=== PATIENT | female | born 1950 | race Caucasian/White ===

== ENCOUNTER 2019-04-27 10:16 | Day surgery (SDC) | payer MEDICARE ==
[~2019-04-27] VITALS: Ht 154.9 cm; Wt 60.8 kg
[~2019-04-27 10:16] MED LIST: ALBU8.5H8 INH; ALPR0.25 PO; ALPR1TAB6 PO; APIX5TAB PO; ASPI-515 PO; ATOR40TA78 PO; BUPR1PAT7 TD; CALC500T93 PO; CEFD300C37 PO; CHOL2000 PO; CHOL5000 PO; CITA10TA8 PO; CITA40TA12 PO; CITA40TA5 PO; CLOP75TA52 PO; DIPH1TAB6 PO; DOXY100T PO; ESCI20TA10 PO; FENO145T32 PO; FISH1CAP PO; HYDR-3237 PO; HYDR-36 PO; HYDR12.575 PO; HYDR8TAB PO; LAMO200T2 PO; LEVO125T5 PO; LEVO88TA4 PO; LOSA1TAB22 PO; LOSA25TA12 PO; METO25TA35 PO; MULT-717 PO; NICO-486 TD; ONDA4TAB10 PO; ONDA4TAB13 SL; OXYC-307 PO; OXYC10TA47 PO; OXYC15TA PO; ROSU20TA2 PO; ROSU20TA29 PO; TIOT4MIS5 INH; TRAM-47 PO; TRAZ-137 PO; TRAZ150T62 PO; VARE1TAB21 PO; [UNRECOGNIZED DRUG - OTHER]
[2019-04-27] MEDS: SODIUM CHLORIDE 0.9% 1,000 ML IV SCH ×3 (11:04→15:04)
[2019-04-27 11:26] VITALS: BP 138/79
[2019-04-27] MEDS ORDERED: DIPHENHYDRAMINE 50 MG/ML, 1ML IVPush ONE (11:30)
[2019-04-27] MEDS ORDERED: DIPHENHYDRAMINE 50 MG/ML, 1ML ONE (12:21)
[2019-04-27] MEDS ORDERED: LIDOCAINE 2%, 20ML ONE (13:54)
[2019-04-27] MEDS ORDERED: MIDAZOLAM 1 MG/ML, 5ML ONE (13:54)
[2019-04-27] MEDS ORDERED: FENTANYL PF 100 MCG/2ML ONE ×2 (13:54→15:43)
[2019-04-27] MEDS ORDERED: VERAPAMIL 2.5 MG/ML, 2ML ONE (13:58)
[2019-04-27] MEDS ORDERED: HEPARIN 1,000 UNITS/ML, 10ML ONE (14:05)
[2019-04-27] MEDS ORDERED: SODIUM CHLORIDE 0.9% 1,000 ML IV SCH (15:55)
[2019-04-27] MEDS ORDERED: OXYcodone/APAP 10/325MG TABLET PO ONE (18:00)
[2019-04-27 18:48] VITALS: BP 156/74
== END 2019-04-27 22:32 | disposition home or self-care (01) ==
LOC: CACL 10:16 → 5SO 16:26 → CACL 22:32
PROVIDERS: ATTEND Internal Medicine Cardiovascular Disease
DX: I08.0 Rheumatic disorders of both mitral and aortic valves (principal); I25.10 Atherosclerotic heart disease of native coronary artery without angina pectoris; I25.83 Coronary atherosclerosis due to lipid rich plaque; I48.0 Paroxysmal atrial fibrillation; I10 Essential (primary) hypertension; J44.9 Chronic obstructive pulmonary disease, unspecified; E78.2 Mixed hyperlipidemia; F17.210 Nicotine dependence, cigarettes, uncomplicated; Z79.82 Long term (current) use of aspirin; Z79.890 Hormone replacement therapy; Z79.01 Long term (current) use of anticoagulants; Z79.899 Other long term (current) drug therapy; Z95.2 Presence of prosthetic heart valve; Z95.5 Presence of coronary angioplasty implant and graft
CPT/HCPCS: 93458; 99156; 99157; C1769; C1894; J1200; J1644; J2250; J3010; Q9967; G0378

== ENCOUNTER 2019-05-11 11:26 | Outpatient (CLI) | payer MEDICARE ==
[2019-05-11 12:55] LABS: CREATININE 1.08 mg/dL (0.55-1.02)
[2019-05-11] MEDS ORDERED: VISIPAQUE 320 MG/ML, 150ML BOTTLE ONE (16:30)
== END 2019-05-11 23:59 | disposition home or self-care (01) ==
LOC: CVU 11:26 → RAD 23:59
PROVIDERS: ATTEND Internal Medicine Cardiovascular Disease
DX: I65.23 Occlusion and stenosis of bilateral carotid arteries (principal); I70.203 Unspecified atherosclerosis of native arteries of extremities, bilateral legs; I70.0 Atherosclerosis of aorta; I70.1 Atherosclerosis of renal artery; I77.1 Stricture of artery; I72.4 Aneurysm of artery of lower extremity; I35.0 Nonrheumatic aortic (valve) stenosis; I10 Essential (primary) hypertension; J90 Pleural effusion, not elsewhere classified; J81.1 Chronic pulmonary edema; R59.0 Localized enlarged lymph nodes; E78.5 Hyperlipidemia, unspecified; Z95.2 Presence of prosthetic heart valve; Z87.891 Personal history of nicotine dependence
CPT/HCPCS: 36415; 71275; 74174; 82565; 93880; Q9967

== ENCOUNTER 2019-05-13 07:00 | Day surgery (SDC) | payer MEDICARE ==
[~2019-05-13] VITALS: Ht 154.9 cm; Wt 56.4 kg
[2019-05-13 07:23] VITALS: BP 158/87
[2019-05-13] MEDS ORDERED: PROPOFOL 10 MG/ML, 20ML ONE (08:40)
== END 2019-05-13 10:09 | disposition home or self-care (01) ==
LOC: CACL 07:00
PROVIDERS: ATTEND Internal Medicine Cardiovascular Disease
DX: R06.02 Shortness of breath (principal); I08.1 Rheumatic disorders of both mitral and tricuspid valves; I48.0 Paroxysmal atrial fibrillation; I10 Essential (primary) hypertension; J44.9 Chronic obstructive pulmonary disease, unspecified; E78.2 Mixed hyperlipidemia; I73.9 Peripheral vascular disease, unspecified; F17.210 Nicotine dependence, cigarettes, uncomplicated; Z79.01 Long term (current) use of anticoagulants; Z79.890 Hormone replacement therapy; Z79.82 Long term (current) use of aspirin; Z79.899 Other long term (current) drug therapy; Z95.2 Presence of prosthetic heart valve
CPT/HCPCS: 93312; 93325; J2704

== ENCOUNTER 2019-06-17 02:20 | Emergency (ER) | payer MEDICARE ==
[~2019-06-17] VITALS: Ht 154.9 cm; Wt 58.9 kg
[~2019-06-17 02:20] MED LIST changes: +ATEN50TA41 PO; +DIPH1TAB PO; +FENO48TA17 PO; +FURO20TA3 PO; +LEVO75TA5 PO; +POTASSIUM ACETATE PO; +TEMA30CA PO; +TRAZ300T2 PO
--- NOTE | 2019-06-17 02:51 | NUR ---
THIS IS A 68Y F THAT COMES IN FOR TIGHTNESS IN HER CHEST AND JAW, PT ALSO REPORTS RIGHT LEG/ ANKLE SWELLING. PT IS SCHEDULED FOR OPEN HEART VALVE REPLACEMENT THIS AM AT 0400
--- NOTE | 2019-06-17 02:51 | NUR ---
MD AT BEDSIDE TO ASSESS PT
[2019-06-17] MEDS ORDERED: SODIUM CHLORIDE FLUSH 10ML SYR IVF ONE (03:00)
[2019-06-17 03:38] LABS: BASOPHILS # (AUTO) 0.02 x10^3/uL (0-0.1); BASOPHILS % (AUTO) 0 % (0-1); EOSINOPHILS # (AUTO) 0.07 x10^3/uL (0-0.4); EOSINOPHILS % (AUTO) 1 % (1-7); LYMPHOCYTES # (AUTO) 0.89 x10^3/uL (1-3.4); LYMPHOCYTES % (AUTO) 15 % (22-44); MD NO; MEAN CORPUSCULAR HEMOGLOBIN 32.8 pg (27.0-34.8); MEAN CORPUSCULAR HGB CONC 31.9 g/dL (32.4-35.8); MEAN CORPUSCULAR VOLUME 102.9 fL (80-100); MEAN PLATELET VOLUME 7.7 fL (7.4-10.4); MONOCYTES # (AUTO) 0.25 x10^3/uL (0.2-0.8); MONOCYTES % (AUTO) 4 % (2-9); NEUTROPHILS # (AUTO) 4.86 x10^3/uL (1.8-6.8); NEUTROPHILS % (AUTO) 80 % (42-75); PLATELET COUNT 207 x10^3/uL (130-400); RED BLOOD COUNT 2.75 x10^6/uL (3.82-5.3)
[2019-06-17 03:48] LABS: ALBUMIN 3.3 g/dL (3.4-5.0); ANION GAP 6 mmol/L (5-15); CALCIUM 9.1 mg/dL (8.5-10.1); CHLORIDE 105 mmol/L (98-107); CREATININE 1.31 mg/dL (0.55-1.02)
[2019-06-17 03:52] LABS: TROPONIN I < 0.015 ng/mL (0.000-0.045)
--- NOTE | 2019-06-17 03:58 | NUR ---
ALL RESULTS BACK CHART UP FOR RECHECK
[2019-06-17 04:18] VITALS: BP 129/70
[2019-06-17] MEDS ORDERED: HYDR-36 PO (15:37)
== END 2019-06-17 04:20 | disposition home or self-care (01) ==
LOC: ED 03:44
DX: R07.2 Precordial pain (principal); R60.9 Edema, unspecified; I25.2 Old myocardial infarction; I10 Essential (primary) hypertension; E78.5 Hyperlipidemia, unspecified; F17.200 Nicotine dependence, unspecified, uncomplicated; Z72.89 Other problems related to lifestyle
CPT/HCPCS: 36415; 80048; 82040; 83880; 84484; 85025; 93005; 99284

== ENCOUNTER 2019-07-22 19:18 | Inpatient (IN) | payer MEDICARE ==
[~2019-07-22] VITALS: Ht 154.9 cm; Wt 56.9 kg
[~2019-07-22 19:18] MED LIST changes: +OXYC-432 PO
--- NOTE | 2019-07-22 19:47 | NUR ---
ASSUMED CARE OF PATIENT. PATIENT REPORTS SHE HAS HAD LOW BLOOD PRESSURE AT HOME. PT REPORTS SHE STOPPED TAKING HER LOW BLOOD PRESSURE MEDICATIONS FOUR DAYS AGO. VS STABLE. GROUP WORKER ON. AT BEDSIDE. CALL LIGHT IN PLACE. WILL CONTINUE TO MONITOR.
--- NOTE | 2019-07-22 19:48 | NUR ---
DR MARTINEZ IN ROOM
--- NOTE | 2019-07-22 20:05 | NUR ---
XRAY IN ROOM
--- NOTE | 2019-07-22 20:05 | NUR ---
CINDY RN: ASSISTED IN PT CARE. IV ACCESS OBTAINED. ERP AT BEDSIDE AND ORDER FOR 1 LITER BOLUS NS RECEIVED. FLUIDS INFUSING. WARM BLANKET AND PILLOW GIVEN. CALL LIGHT IN REACH.
[2019-07-22] MEDS ORDERED: SODIUM CHLORIDE 0.9% 1,000 ML IV STA (20:18)
[2019-07-22 20:34] LABS: MEAN CORPUSCULAR HEMOGLOBIN 32.9 pg (27.0-34.8); MEAN CORPUSCULAR HGB CONC 32.2 g/dL (32.4-35.8); MEAN CORPUSCULAR VOLUME 102.2 fL (80-100); MEAN PLATELET VOLUME 7.4 fL (7.4-10.4); PLATELET COUNT 270 x10^3/uL (130-400); RED BLOOD COUNT 2.13 x10^6/uL (3.82-5.3); RED CELL DISTRIBUTION WIDTH 15.3 % (9.6-15.2)
[2019-07-22 20:35] LABS: HEMOGRAM NOTE RECHECKED
[2019-07-22 20:39] LABS: ALBUMIN 3.2 g/dL (3.4-5.0); ANION GAP 12 mmol/L (5-15); CHLORIDE 104 mmol/L (98-107)
--- NOTE | 2019-07-22 20:41 | NUR ---
CRITICAL CALLED FROM LAB, HCT 21.8, HGB 7. MD MALLIKA NOTIFIED GUAC RECTAL EXAM DONE BY MD MALLIKA
[2019-07-22 20:43] LABS: ALANINE AMINOTRANSFERASE 17 U/L (12-78); ALKALINE PHOSPHATASE 35 U/L (45-117); BILIRUBIN,TOTAL 0.6 mg/dL (0.2-1.0); CREATININE 1.25 mg/dL (0.55-1.02); TOTAL PROTEIN 6.5 g/dL (6.4-8.2); TROPONIN I < 0.015 ng/mL (0.000-0.045)
[2019-07-22] MEDS ORDERED: LEVO125T5 PO (20:43)
[2019-07-22] MEDS ORDERED: CITA40TA5 PO (20:44)
[2019-07-22] MEDS ORDERED: CLOP75TA PO (20:46)
[2019-07-22 20:47] LABS: MD YES
[2019-07-22] MEDS ORDERED: FENO160T PO (20:47)
[2019-07-22] MEDS ORDERED: LAMO100T PO (20:48)
--- NOTE | 2019-07-22 20:50 | NUR ---
EXPLAINED TO PATIENT NEED FOR BLOOD, GAVE PT INFROMATION ABOUT TRANSFUSIONS. BLOOD CONSENT FORM SIGNED BY PATIENT, RN, AND
[2019-07-22] MEDS ORDERED: LOSA100T14 PO (20:51)
[2019-07-22] MEDS ORDERED: HYDR25TA6 PO (20:52)
[2019-07-22] MEDS ORDERED: PANTOPRAZOLE 80 MG in SODIUM CHLORIDE 0.9% 50 ML IV ONE (21:00)
[2019-07-22] MEDS ORDERED: PANTOPRAZOLE 80 MG in SODIUM CHLORIDE 0.9% 100 ML IV SCH (21:00)
[2019-07-22] MEDS ORDERED: SODIUM CHLORIDE 0.9% 1,000 ML IV ONE (21:00)
[2019-07-22 21:01] LABS: ANISOCYTOSIS 1+; BAND#(MANUAL) 0.09 x10^3/uL; BANDS%(MANUAL) 1 % (0-7); BASOS#(MANUAL) 0.09 x10^3/uL (0-0.1); BASOS% (MANUAL) 1 % (0-1); LYMPH#(MANUAL) 1.44 x10^3/uL (1-3.4); LYMPHS% (MANUAL) 16 % (22-44); MONOS#(MANUAL) 0.27 x10^3/uL (0.3-2.7); MONOS% (MANUAL) 3 % (2-9); SEG#(MANUAL) 7.11 x10^3/uL (1.8-6.8); SEGS% (MANUAL) 79 % (42-75)
[2019-07-22 21:02] LABS: OVALOCYTES 1+; POLYCHROMASIA 1+
[2019-07-22 21:03] LABS: <PLATELET ESTIMATE> ADEQUATE; LARGE PLATELETS 1+; TEAR DROPS 1+
[2019-07-22] MEDS: PANTOPRAZOLE 80 MG in SODIUM CHLORIDE 0.9% 100 ML IV SCH (21:30)
[2019-07-22] MEDS ORDERED: ONDANSETRON 2MG/ML, 2ML IVPush PRN (21:30)
[2019-07-22] MEDS ORDERED: BISACODYL 10 MG SUPP PR PRN (21:30)
[2019-07-22] MEDS ORDERED: ALBUTEROL SULFATE 2.5 MG/3 ML NPPB SCH (21:30)
[2019-07-22 21:59] VITALS: BP 102/59
[2019-07-22 22:03] VITALS: BP 98/58
--- NOTE | 2019-07-22 22:12 | NUR ---
PRBC INFUSION STARTED, PATIENT TOLERATING INFUSION WELL. VSS, NAD, DOUBLE VERIFIED WITH MAMADOU MOORE. IV PROTONIX BOLUS STARTED AT THIS TIME. REPORT CALLED TO MAMADOU ANTHONY. PLAN OF CARE DISCUSSED. MAMADOU ANTHONY AWARE BLOOD INFUSION JUST STARTED AND PATIENT WILL STAY DOWN HERE FOR NEXT 15MIN FOR FIRST VITAL SIGN CHECK, THEN TRANSFER UPSTAIRS.
[2019-07-22 22:17] VITALS: BP 91/52
[2019-07-22 22:36] LABS: INTERNATIONAL NORMALIZED RATIO 1.32 (0.93-1.1)
[2019-07-22 22:49] VITALS: BP 119/72
[2019-07-22] MEDS: NICOTINE 7 MG/24 HR PATCH.TD24 TD SCH (23:14)
[2019-07-22] MEDS: ATORVASTATIN 80 MG TABLET PO SCH (23:14)
[2019-07-23] VITALS (13 sets, daily range): BP systolic 90–152; BP diastolic 53–88
[2019-07-23] MEDS: ALPRazolam 1MG TAB PO PRN ×2 (00:42→22:10)
[2019-07-23] MEDS: OXYcodone/APAP 5/325MG TABLET PO PRN ×2 (01:21→15:09)
[2019-07-23 02:34] LABS: ALBUMIN 2.4 g/dL (3.4-5.0); ANION GAP 8 mmol/L (5-15); CHLORIDE 111 mmol/L (98-107)
[2019-07-23 02:37] LABS: ALANINE AMINOTRANSFERASE 13 U/L (12-78); ALKALINE PHOSPHATASE 25 U/L (45-117); BILIRUBIN,TOTAL 0.7 mg/dL (0.2-1.0); TOTAL PROTEIN 4.8 g/dL (6.4-8.2)
[2019-07-23] MEDS: SODIUM CHLORIDE 0.9% 1,000 ML IV SCH ×2 (02:47→17:30)
[2019-07-23 02:56] LABS: MEAN CORPUSCULAR HEMOGLOBIN 32.7 pg (27.0-34.8); MEAN CORPUSCULAR HGB CONC 32.8 g/dL (32.4-35.8); MEAN CORPUSCULAR VOLUME 99.8 fL (80-100); MEAN PLATELET VOLUME 7.3 fL (7.4-10.4); PLATELET COUNT 180 x10^3/uL (130-400); RED BLOOD COUNT 2.04 x10^6/uL (3.82-5.3); RED CELL DISTRIBUTION WIDTH 17.5 % (9.6-15.2)
[2019-07-23 03:23] LABS: MD YES
[2019-07-23 03:27] LABS: ANISOCYTOSIS 1+; BAND#(MANUAL) 0.12 x10^3/uL; BANDS%(MANUAL) 2 % (0-7); LYMPH#(MANUAL) 1.24 x10^3/uL (1-3.4); LYMPHS% (MANUAL) 20 % (22-44); METAMYELOCYTES# (MANUAL) 0.06 x10^3/uL (0-0); METAMYELOCYTES% (MANUAL) 1 % (0-1); MYELOCYTES# (MANUAL) 0.06 x10^3/uL (0-0); MYELOCYTES% (MANUAL) 1 % (0-0); POLYCHROMASIA 1+; SEG#(MANUAL) 4.71 x10^3/uL (1.8-6.8); SEGS% (MANUAL) 76 % (42-75)
[2019-07-23 03:28] LABS: <PLATELET ESTIMATE> ADEQUATE; LARGE PLATELETS 1+; OVALOCYTES 1+; SCHISTOCYTES 1+; TEAR DROPS 1+
[2019-07-23] MEDS: ALBUTEROL/IPRATROPIUM 2.5MG/0.5MG, 3 ML NPPB SCH ×4 (06:00→21:00)
[2019-07-23] MEDS: FENOFIBRATE 145 MG TABLET PO SCH (08:03)
[2019-07-23] MEDS: LAMOTRIGINE 200 MG TABLET PO SCH (08:03)
[2019-07-23] MEDS: CITALOPRAM 20 MG TABLET PO SCH (08:03)
[2019-07-23] MEDS ORDERED: TIOTROPIUM BROMIDE INH SCH (09:00)
[2019-07-23] MEDS ORDERED: LEVOTHYROXINE 125 MCG TABLET PO SCH (09:00)
[2019-07-23] MEDS ORDERED: OXYcodone/APAP 10/325MG TABLET PO SCH (09:00)
[2019-07-23] MEDS: PANTOPRAZOLE 80 MG in SODIUM CHLORIDE 0.9% 100 ML IV SCH (09:10)
[2019-07-23] MEDS ORDERED: PROPOFOL 10 MG/ML, 20ML ONE (11:02)
[2019-07-23] MEDS ORDERED: PHENYLEPHRINE 10 MG/ML ONE (11:02)
[2019-07-23] MEDS ORDERED: HALOPERIDOL 5 MG/ML IV PRN (13:00)
[2019-07-23] MEDS ORDERED: PROMETHAZINE 25 MG/ML, 1ML IV PRN (13:00)
[2019-07-23] MEDS ORDERED: FENTANYL PF 100 MCG/2ML IV PRN (13:00)
[2019-07-23] MEDS ORDERED: MIDAZOLAM 1 MG/ML, 2ML IV PRN (13:00)
[2019-07-23] MEDS ORDERED: OXYcodone 5 MG/5 ML ORAL.SOL UDC PO PRN (13:00)
[2019-07-23] MEDS ORDERED: ONDANSETRON ODT 8 MG PO PRN (13:00)
[2019-07-23] MEDS ORDERED: hydrALAzine 20 MG/ML, 1ML IV PRN (13:00)
[2019-07-23] MEDS ORDERED: LABETALOL 5MG/ML, 20ML IV PRN (13:00)
[2019-07-23] MEDS ORDERED: EPHEDRINE 50 MG/ML, 1ML IVPush PRN (13:00)
[2019-07-23] MEDS ORDERED: ONDANSETRON 2MG/ML, 2ML IV PRN (13:00)
[2019-07-23] MEDS ORDERED: PROMETHAZINE 12.5 MG SUPP PR PRN (13:00)
[2019-07-23] MEDS ORDERED: MEPERIDINE/PF 25MG/ML,1ML IVPush PRN (13:00)
[2019-07-23] MEDS ORDERED: DIAZEPAM 5 MG/ML, 2ML IVPush PRN (13:00)
[2019-07-23] MEDS ORDERED: ALBUTEROL SULFATE 2.5 MG/3 ML NPPB PRN (13:00)
[2019-07-23] MEDS ORDERED: HYDROmorphone 2 MG/ML, 1ML IVPush PRN (13:00)
[2019-07-23] MEDS ORDERED: OXYcodone 5 MG/5 ML ORAL.SOL UDC ONE (13:14)
[2019-07-23] MEDS: ATORVASTATIN 80 MG TABLET PO SCH (20:33)
[2019-07-23] MEDS: OXYcodone/APAP 10/325MG TABLET PO PRN (20:34)
[2019-07-23] MEDS: NICOTINE 7 MG/24 HR PATCH.TD24 TD SCH (20:40)
[2019-07-23 21:19] LABS: MEAN CORPUSCULAR HEMOGLOBIN 30.5 pg (27.0-34.8); MEAN CORPUSCULAR HGB CONC 32.9 g/dL (32.4-35.8); MEAN CORPUSCULAR VOLUME 92.7 fL (80-100); MEAN PLATELET VOLUME 7.5 fL (7.4-10.4); PLATELET COUNT 190 x10^3/uL (130-400); RED BLOOD COUNT 3.22 x10^6/uL (3.82-5.3); RED CELL DISTRIBUTION WIDTH 22.6 % (9.6-15.2)
[2019-07-23 21:29] LABS: MD YES
[2019-07-23 21:32] LABS: ANISOCYTOSIS 1+; EOS#(MANUAL) 0.29 x10^3/uL (0.0-0.4); EOS% (MANUAL) 4 % (1-7); LYMPH#(MANUAL) 1.68 x10^3/uL (1-3.4); LYMPHS% (MANUAL) 23 % (22-44); MONOS#(MANUAL) 0.22 x10^3/uL (0.3-2.7); MONOS% (MANUAL) 3 % (2-9); POLYCHROMASIA 1+; SEG#(MANUAL) 5.11 x10^3/uL (1.8-6.8); SEGS% (MANUAL) 70 % (42-75); TEAR DROPS 1+
[2019-07-23 21:33] LABS: <PLATELET ESTIMATE> ADEQUATE; LARGE PLATELETS 1+; OVALOCYTES 1+
[2019-07-23] MEDS ORDERED: OMNIPAQUE 350 MG/ML, 100ML BOTTLE ONE (22:23)
[2019-07-24 00:59] VITALS: BP_SYST 118; BP_DIAS 75; BP_DIAS 79
[2019-07-24] MEDS: OXYcodone/APAP 10/325MG TABLET PO PRN ×2 (03:15→09:21)
[2019-07-24 05:15] LABS: MEAN CORPUSCULAR HEMOGLOBIN 30.7 pg (27.0-34.8); MEAN CORPUSCULAR HGB CONC 32.8 g/dL (32.4-35.8); MEAN CORPUSCULAR VOLUME 93.6 fL (80-100); MEAN PLATELET VOLUME 7.6 fL (7.4-10.4); PLATELET COUNT 169 x10^3/uL (130-400); RED BLOOD COUNT 2.94 x10^6/uL (3.82-5.3)
[2019-07-24] MEDS: SODIUM CHLORIDE 0.9% 1,000 ML IV SCH (05:26)
[2019-07-24 05:28] LABS: MD YES
[2019-07-24 05:29] LABS: CHLORIDE 116 mmol/L (98-107)
[2019-07-24 05:30] LABS: ANISOCYTOSIS 1+; EOS#(MANUAL) 0.24 x10^3/uL (0.0-0.4); EOS% (MANUAL) 3 % (1-7); LYMPH#(MANUAL) 1.42 x10^3/uL (1-3.4); LYMPHS% (MANUAL) 18 % (22-44); MONOS#(MANUAL) 0.08 x10^3/uL (0.3-2.7); MONOS% (MANUAL) 1 % (2-9); OVALOCYTES 1+; POLYCHROMASIA 1+; SEG#(MANUAL) 6.16 x10^3/uL (1.8-6.8); SEGS% (MANUAL) 78 % (42-75)
[2019-07-24 05:31] LABS: <PLATELET ESTIMATE> ADEQUATE; LARGE PLATELETS 1+
[2019-07-24 05:34] LABS: ALANINE AMINOTRANSFERASE 15 U/L (12-78); ALBUMIN 2.5 g/dL (3.4-5.0); ALKALINE PHOSPHATASE 37 U/L (45-117); ANION GAP 6 mmol/L (5-15); CALCIUM 7.8 mg/dL (8.5-10.1); CREATININE 0.95 mg/dL (0.55-1.02); TOTAL PROTEIN 5.1 g/dL (6.4-8.2)
[2019-07-24] MEDS ORDERED: LEVOTHYROXINE 125 MCG TABLET PO SCH (06:00)
[2019-07-24] MEDS: ALBUTEROL/IPRATROPIUM 2.5MG/0.5MG, 3 ML NPPB SCH ×2 (06:45→10:30)
[2019-07-24 07:07] VITALS: BP 100/65
[2019-07-24] MEDS ORDERED: OMEPRAZOLE 20 MG CAPSULE.DR PO SCH (09:00)
[2019-07-24] MEDS: FENOFIBRATE 145 MG TABLET PO SCH (09:19)
[2019-07-24] MEDS: CITALOPRAM 20 MG TABLET PO SCH (09:20)
[2019-07-24] MEDS: LAMOTRIGINE 200 MG TABLET PO SCH (09:20)
[2019-07-24] MEDS ORDERED: OMEP-110 PO (10:22)
== END 2019-07-24 12:05 | disposition home health service (06) | DRG 378 ==
LOC: ED 19:49 → EDIP 21:07 → 3N 22:36 → DCLOUNGE 07-24 11:45
PROVIDERS: ADMIT Internal Medicine; ATTEND Internal Medicine
PROC: 0D568ZZ Destruction of Stomach, Via Natural or Artificial Opening Endoscopic (ICD-10-PCS; principal; 2019-07-23 14:00)
DX: K31.811 Angiodysplasia of stomach and duodenum with bleeding (principal); D62 Acute posthemorrhagic anemia; E87.1 Hypo-osmolality and hyponatremia; E87.2 Acidosis; J96.11 Chronic respiratory failure with hypoxia; E03.9 Hypothyroidism, unspecified; E78.5 Hyperlipidemia, unspecified; F17.210 Nicotine dependence, cigarettes, uncomplicated; F32.9 Major depressive disorder, single episode, unspecified; F41.9 Anxiety disorder, unspecified; G47.33 Obstructive sleep apnea (adult) (pediatric); I10 Essential (primary) hypertension; I25.10 Atherosclerotic heart disease of native coronary artery without angina pectoris; I35.0 Nonrheumatic aortic (valve) stenosis; I48.0 Paroxysmal atrial fibrillation; J44.9 Chronic obstructive pulmonary disease, unspecified; G89.29 Other chronic pain; I73.9 Peripheral vascular disease, unspecified; I95.9 Hypotension, unspecified; K92.0 Hematemesis; Z96.651 Presence of right artificial knee joint; Z79.02 Long term (current) use of antithrombotics/antiplatelets; I25.2 Old myocardial infarction; Z82.5 Family history of asthma and other chronic lower respiratory diseases; Z95.1 Presence of aortocoronary bypass graft; Z95.3 Presence of xenogenic heart valve; Z95.5 Presence of coronary angioplasty implant and graft; Z79.899 Other long term (current) drug therapy; Z95.2 Presence of prosthetic heart valve; Z98.51 Tubal ligation status
CPT/HCPCS: 36415; 36430; 71045; 74177; 80053; 82607; 83880; 84484; 85014; 85018; 85025; 85610; 85730; 86850; 86900; 86923; 93005; 94640; 96361; 96365; G0378; J2704; J3010; J7620; Q9967; C9113; J2370; J7030; P9016

== ENCOUNTER → 2019-12-09 | Outpatient (CLI) | payer MEDICARE ==
[~2019-12-09] MED LIST changes: +CLOP75TA PO; +FENO160T PO; +FENO48TA10 PO; -FENO48TA17 PO; +HYDR-3246 PO; -HYDR-36 PO; +HYDR25TA6 PO; +LAMO100T8 PO; -LAMO200T2 PO; +LAMO200T6 PO; +LOSA100T14 PO; +OMEP-110 PO; -OXYC15TA PO; +OXYC15TA3 PO; -TRAZ-137 PO; +TRAZ-175 PO
== END | disposition home or self-care (01) ==
LOC: CVU 11:01
PROVIDERS: ATTEND Internal Medicine Cardiovascular Disease
DX: I08.1 Rheumatic disorders of both mitral and tricuspid valves (principal); I48.0 Paroxysmal atrial fibrillation; I10 Essential (primary) hypertension; Z95.2 Presence of prosthetic heart valve; Z79.01 Long term (current) use of anticoagulants
CPT/HCPCS: 93306

== ENCOUNTER 2020-11-23 13:21 | Observation (INO) | payer MEDICARE ==
[2020-11-21 12:13] LABS: BASOPHILS % (AUTO) 1 % (0-1); EOSINOPHILS % (AUTO) 1 % (1-7); LYMPHOCYTES % (AUTO) 11 % (22-44); MEAN CORPUSCULAR HGB CONC 33.7 g/dL (32.4-35.8); MEAN PLATELET VOLUME 6.9 fL (7.4-10.4); MONOCYTES % (AUTO) 7 % (2-9); NEUTROPHILS % (AUTO) 80 % (42-75); PLATELET COUNT 268 x10^3/uL (130-400); RED CELL DISTRIBUTION WIDTH 17.2 % (9.6-15.2)
[2020-11-21 12:14] LABS: MD NO
[2020-11-21 12:30] LABS: ALBUMIN 3.8 g/dL (3.4-5.0); ANION GAP 5 mmol/L (5-15); CALCIUM 9.9 mg/dL (8.5-10.1); CHLORIDE 102 mmol/L (98-107)
[2020-11-21 12:33] LABS: ALANINE AMINOTRANSFERASE 25 U/L (12-78); ALKALINE PHOSPHATASE 66 U/L (45-117); BILIRUBIN,TOTAL 0.5 mg/dL (0.2-1.0); CREATININE 1.43 mg/dL (0.55-1.02)
[~2020-11-23] VITALS: Ht 156.2 cm; Wt 51.2 kg
[~2020-11-23 13:21] MED LIST changes: +ALPR-585 PO; -ALPR1TAB6 PO; -ASPI-515 PO; +ASPI-963 PO; +CYAN-27 PO; -HYDR-3246 PO; +HYDR-3248 PO; -HYDR8TAB PO; +HYDR8TAB44 PO; +ONDA4TAB7 PO; -OXYC-307 PO; +OXYC-380 PO; -OXYC-432 PO; +OXYC1TAB18 PO; +TIZA4CAP PO; +ZINC50CA PO
[2020-11-23 13:54] VITALS: BP 168/73
[2020-11-23] MEDS ORDERED: LIDOCAINE-MPF 1%, 2ML ONE (14:10)
[2020-11-23] MEDS ORDERED: D5%-0.45% NACL 1,000 ML IV SCH (15:00)
[2020-11-23] MEDS ORDERED: LIDOCAINE-MPF 1%, 2ML INFIL ONE (15:00)
[2020-11-23] MEDS ORDERED: FENTANYL PF 100 MCG/2ML ONE (16:22)
[2020-11-23] MEDS ORDERED: MIDAZOLAM 1 MG/ML, 5ML ONE (16:22)
[2020-11-23] MEDS ORDERED: HEPARIN 1,000 UNITS/ML, 10ML ONE (16:23)
[2020-11-23] MEDS ORDERED: NALOXONE 1 MG/ML, 2ML ONE (16:23)
[2020-11-23] MEDS ORDERED: PROTAMINE SULFATE 10 MG/ML, 25ML ONE (16:23)
[2020-11-23] MEDS ORDERED: FLUMAZENIL 0.1 MG/1 ML, 5ML ONE (16:23)
[2020-11-23] MEDS ORDERED: LIDOCAINE 1%, 10ML ONE ×2 (16:30→17:06)
[2020-11-23] MEDS ORDERED: hydrALAzine 20 MG/ML, 1ML ONE ×2 (16:56→18:19)
[2020-11-23] MEDS ORDERED: HYDROmorphone 1 MG/ML, 1ML INJ IM PRN (18:30)
[2020-11-23] MEDS ORDERED: ACETAMINOPHEN 650 MG/20.3 ML UDC PO PRN (18:30)
[2020-11-23] MEDS ORDERED: ALBUTEROL SULFATE 2.5 MG/3 ML HHN PRN (19:00)
[2020-11-23] MEDS ORDERED: DIPHENOXYLATE/ATROPINE TABLET PO PRN (19:00)
[2020-11-23] MEDS ORDERED: ONDANSETRON 4 MG TABLET PO PRN (19:00)
[2020-11-23] MEDS: D5%-LACTATED RINGERS 1,000 ML IV SCH (19:30)
[2020-11-23 20:23] VITALS: BP 157/81
[2020-11-23] MEDS ORDERED: TRAZODONE 150MG TABLET PO SCH (21:00)
[2020-11-23] MEDS: APIXABAN 5 MG TABLET PO SCH (21:02)
[2020-11-23] MEDS: METOPROLOL TARTRATE 25 MG TAB PO SCH (21:03)
[2020-11-23] MEDS: OXYcodone/APAP 10/325MG TABLET PO PRN (21:03)
[2020-11-23] MEDS ORDERED: OMEPRAZOLE 20 MG CAPSULE.DR PO ONE (21:30)
[2020-11-24] VITALS (7 sets, daily range): BP systolic 80–118; BP diastolic 45–68
[2020-11-24] MEDS: OXYcodone/APAP 10/325MG TABLET PO PRN ×4 (02:10→15:04)
[2020-11-24] MEDS: D5%-LACTATED RINGERS 1,000 ML IV SCH ×3 (03:27→11:00)
[2020-11-24 05:39] LABS: BASOPHILS % (AUTO) 1 % (0-1); EOSINOPHILS % (AUTO) 1 % (1-7); LYMPHOCYTES % (AUTO) 16 % (22-44); MEAN CORPUSCULAR HEMOGLOBIN 32.9 pg (27.0-34.8); MEAN CORPUSCULAR HGB CONC 33.9 g/dL (32.4-35.8); MEAN PLATELET VOLUME 6.8 fL (7.4-10.4); MONOCYTES % (AUTO) 10 % (2-9); NEUTROPHILS % (AUTO) 73 % (42-75); PLATELET COUNT 243 x10^3/uL (130-400); RED BLOOD COUNT 3.72 x10^6/uL (3.82-5.3); RED CELL DISTRIBUTION WIDTH 17.2 % (9.6-15.2)
[2020-11-24 05:40] LABS: MD NO
[2020-11-24 05:50] LABS: ANION GAP 6 mmol/L (5-15); CALCIUM 8.5 mg/dL (8.5-10.1); CHLORIDE 100 mmol/L (98-107); CREATININE 1.34 mg/dL (0.55-1.02)
[2020-11-24] MEDS ORDERED: LEVOTHYROXINE 125 MCG TABLET PO SCH (06:00)
[2020-11-24] MEDS: METOPROLOL TARTRATE 25 MG TAB PO SCH (08:39)
[2020-11-24] MEDS: APIXABAN 5 MG TABLET PO SCH (08:39)
[2020-11-24] MEDS ORDERED: OMEPRAZOLE 20 MG CAPSULE.DR PO SCH (09:00)
[2020-11-24] MEDS ORDERED: LAMOTRIGINE 200 MG TABLET PO SCH (09:00)
[2020-11-24] MEDS ORDERED: POTASSIUM CHLORIDE 20 MEQ in SODIUM CHLORIDE 0.9% 250 ML IV ONE (09:00)
[2020-11-24] MEDS ORDERED: SODIUM CHLORIDE 0.9%, 500ML IVBOLUS ONE (12:00)
== END 2020-11-24 15:25 | disposition home or self-care (01) ==
LOC: SDC 13:21 → 4NE 19:00 → SDC 19:56 → 4NE 19:57 → DCLOUNGE 11-24 15:20
PROVIDERS: ADMIT Surgery; ATTEND Surgery
DX: I65.21 Occlusion and stenosis of right carotid artery (principal); Z20.822 Contact with and (suspected) exposure to COVID-19; I65.22 Occlusion and stenosis of left carotid artery; I70.1 Atherosclerosis of renal artery; N26.1 Atrophy of kidney (terminal); I70.8 Atherosclerosis of other arteries; I35.0 Nonrheumatic aortic (valve) stenosis; I73.9 Peripheral vascular disease, unspecified; I10 Essential (primary) hypertension; I95.9 Hypotension, unspecified; E03.9 Hypothyroidism, unspecified; J44.9 Chronic obstructive pulmonary disease, unspecified; E78.5 Hyperlipidemia, unspecified; N19 Unspecified kidney failure; F32.9 Major depressive disorder, single episode, unspecified; F17.200 Nicotine dependence, unspecified, uncomplicated; Z79.899 Other long term (current) drug therapy; Z79.82 Long term (current) use of aspirin
CPT/HCPCS: 36415; 37220; 37236; 37246; 75630; 76937; 80048; 80053; 85025; 96360; 96361; 96372; 99156; 99157; C1725; C1751; C1760; C1769; C1876; C1894; G0378; J0360; J1170; J1644; J2250; J3010; J3480; J3490; J7040; J7050; J7121; Q0162; U0003; U0005; J2720; J2310